=== PATIENT | female | born 2000 | race Caucasian/White ===

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

== ENCOUNTER 2021-01-06 21:31 | Outpatient (CLI) | payer MEDICAID ==
[~2021-01-06] VITALS: Ht 162.6 cm; Wt 68.2 kg
[~2021-01-06 21:31] MED LIST changes: +SPRINTEC 35 MCG1 TAB PO; +ZOFRAN ODT4 MG PO
[2021-01-06] MEDS ORDERED: PRENATAL TABLET PO (21:55)
[2021-01-06] MEDS ORDERED: LEXAPRO 10MG10 MG PO (21:56)
[2021-01-06 22:06] VITALS: BP 131/76; PULSE 100; TEMP 98.5
[2021-01-06 22:12] LABS: COLLECTION METHOD CLEAN CATCH
[2021-01-06 22:17] LABS: MUCOUS Present /lpf; PH 7 (5-8); SQUAMOUS EPITHELIAL None Seen /hpf; URINE APPEARANCE Clear; URINE BACTERIA None Seen /hpf; URINE BILIRUBIN Negative (NEGATIVE); URINE BLOOD Negative (NEGATIVE); URINE COLOR Yellow; URINE GLUCOSE Negative (NEGATIVE); URINE KETONE 2+ (NEGATIVE); URINE LEUKOCYTE ESTERASE Negative (NEGATIVE); URINE NITRATE Negative (NEGATIVE); URINE PROTEIN(semi-quant) Negative (NEGATIVE); URINE RBC 0-2 /hpf; URINE UROBILINOGEN Negative (NEGATIVE); URINE WBC 0-2 /hpf
== END 2021-01-06 22:38 | disposition home or self-care (01) ==
LOC: LDRO 21:31
PROVIDERS: Obstetrics & Gynecology
DX: O26.892 Other specified pregnancy related conditions, second trimester (principal); M54.9 Dorsalgia, unspecified; R10.2 Pelvic and perineal pain; R30.9 Painful micturition, unspecified; Z3A.20 20 weeks gestation of pregnancy

== ENCOUNTER 2021-04-20 11:22 | Outpatient (CLI) | payer MEDICAID ==
[2021-04-20] VITALS (9 sets, daily range): BP systolic 109–118; BP diastolic 63–73; PULSE 105–133; TEMP 99.2
[~2021-04-20] VITALS: Ht 162.6 cm; Wt 82.3 kg
[~2021-04-20 11:22] MED LIST changes: +LEXAPRO 10MG10 MG PO; +PRENATAL TABLET PO
--- NOTE | 2021-04-20 11:25 | NUR ---
1125-, 35.1, arrives on unit w/ SO to LDR5. Oriented to room and instructed to change into gown. Patient denies LOF, VB, or decreased movement. Patient reports that she is having some lower back pain and abdominal pain. Denies regular ctx at this time. EFM/TOCO explained and applied. Assessments completed. Plan of care discussed, patient verbalizes understanding. 1200-SVE CL/TH/HI. 1230-Covid swab completed and sent to lab. 1240-IV started. Blood obtained and sent to lab. 500 ml IV bolus started. Plan of care discussed, patient verbalizes understanding. Call light within reach.
[2021-04-20 12:49] LABS: BASO % 0.3 % (0.0-2.0); GRAN # 8.1 K/mm3 (1.4-6.5); GRAN % 88.4 % (42.2-75.2); HEMATOCRIT 39.8 % (37.0-47.0); HEMOGLOBIN 13.7 g/dl (12.5-16.0); LYMPH # 0.5 K/mm3 (1.2-3.4); LYMPH % 5.9 % (20.0-51.0); MEAN CELL VOLUME 89 fl (80.0-100.0); MEAN CORPUSCULAR HEMOGLOBIN 31 pg (27.0-31.0); MEAN CORPUSCULAR HGB CONC 34 g/dl (33.0-37.0); MEAN PLATELET VOLUME 8.9 fl (7.4-10.4); MONO # 0.4 K/mm3 (0.1-0.6); MONO % 4.6 % (1.7-9.3); PLATELET COUNT 194 K/mm3 (130-400); RED BLOOD COUNT 4.45 M/mm3 (4.10-5.30); REDCELL DISTRIBUTION WIDTH-CV 12.4 % (11.5-14.5)
[2021-04-20 13:04] LABS: BILIRUBIN,TOTAL 0.7 mg/dL (0.2-1.2); CREATININE, serum 0.51 mg/dL (0.57-1.11); POTASSIUM 3.5 mmol/L (3.5-4.5); TOTAL PROTEIN 6.8 gm/dL (6.2-8.1)
--- NOTE | 2021-04-20 15:50 | NUR ---
1550-Discharge instructioned reviewed with patient. Patient verbalizes understanding. 1600-Patient ambulatory off unit with SO.
== END 2021-04-20 16:00 | disposition home or self-care (01) ==
LOC: LDRO 11:22
PROVIDERS: Obstetrics & Gynecology
DX: O26.893 Other specified pregnancy related conditions, third trimester (principal); R25.2 Cramp and spasm; R11.2 Nausea with vomiting, unspecified; R19.7 Diarrhea, unspecified; M54.50 Low back pain, unspecified; Z3A.35 35 weeks gestation of pregnancy
CPT/HCPCS: J7120

== ENCOUNTER 2021-05-12 07:48 | Inpatient (IN) | payer MEDICAID ==
[~2021-05-12] VITALS: Ht 162.6 cm; Wt 84.1 kg
[2021-05-12] VITALS (30 sets, daily range): BP systolic 95–124; BP diastolic 52–83; PULSE 85–127; TEMP 97.4–98.5
--- NOTE | 2021-05-12 07:50 | NUR ---
Pt ambulatory onto unit with spouse. Pt changed into clean gown. FHR monitor/TOCO applied. Pt complaining of contraction pain. Pt denies any gushing of fluid, heavy vaginal bleeding, or decreased movement. SVE by this RN and Guilherme Hassan 5-/-2. Plan of care is discussed. Pt verbalizes understanding.
[2021-05-12 08:59] LABS: BASO % 0.4 % (0.0-2.0); EOS # 0.1 K/mm3 (0.0-0.7); EOS % 0.7 % (0.0-4.0); GRAN # 8.1 K/mm3 (1.4-6.5); GRAN % 72.7 % (42.2-75.2); LYMPH # 1.8 K/mm3 (1.2-3.4); LYMPH % 16.6 % (20.0-51.0); MEAN CELL VOLUME 88 fl (80.0-100.0); MEAN CORPUSCULAR HEMOGLOBIN 31 pg (27-31); MEAN CORPUSCULAR HGB CONC 35 g/dl (33.0-37.0); MEAN PLATELET VOLUME 8.7 fl (7.4-10.4); MONO % 9.1 % (1.7-9.3); PLATELET COUNT 198 K/mm3 (130-400); RED BLOOD COUNT 4.23 M/mm3 (4.10-5.30); REDCELL DISTRIBUTION WIDTH-CV 12.4 % (11.5-14.5)
--- NOTE | 2021-05-12 09:15 | NUR ---
FHR monitor tracing maternal heart rate. this RN at bedside. pt sitting up for epidural.
--- NOTE | 2021-05-12 14:00 | NUR ---
1300 Dr. Mcneal in patients room reviewing FHR strip. SVE by Dr Mcneal /+2. This RN teaches patient how to push and prepares for delivery 1305 Pt begins pushing with contractions. [id number] Mcneal and this RN at bedside. Pt tolerating well. 1352 Spontaneous vaginal delivery of viable male infant. is bulb suctioned and stimulated placed on mother's chest. Cord is clamped by Dr Mcneal and cut by father of baby. Ronny santamaria takes over care of infant. 1355 Spontaneous delivery of placenta. Pitocin bolus started per protocol. 1st degree perineal laceration noted. Dr Mcneal repairs laceration. Epidural pump is turned off and anesthesia notified. Fundal massage is performed. Pt firm/midline. Small amt of bleeding noted. No clots. Plan of care and safety precautions discussed with patient. Pt verbalizes understanding.
--- NOTE | 2021-05-12 20:00 | NUR ---
1999 PAD CHANGED WITH 3/4 PAD SATURATED IN TWO HOURS. FF. DR JIMENEZ AWARE AND NEW ORDER RECIEVED
--- NOTE | 2021-05-12 21:00 | NUR ---
2100 UP TO BR AND VOIDED 300CC WITH SM TO MOD VAG BLEEDING NOTED ON PAD. NO EXCESS VAG BLEEDING NOTED WHEN UP. PAD CHANGED. RETURNED TO BED. NO C/O DIZZINESS WHEN UP.
[2021-05-13 02:15] VITALS: BP 92/46; PULSE 80; TEMP 97.8
[2021-05-13 07:02] LABS: HEMATOCRIT 27.1 % (37.0-47.0); HEMOGLOBIN 9.4 g/dl (12.5-16.0)
[2021-05-13 09:00] VITALS: BP 90/41; PULSE 84; TEMP 97.9
--- NOTE | 2021-05-13 10:43 | NUR ---
Initial visit; Parents thanked Front Desk Manager for offering congratulations and God's blessings for the of their son. Front Desk Manager thanked family for choosing [facility].
[2021-05-13 16:30] VITALS: BP 98/46; PULSE 87; TEMP 98.1
[2021-05-13] MEDS ORDERED: MOTRIN 800800 MG/TAB PO (17:08)
[2021-05-13 22:00] VITALS: BP 98/58; PULSE 95; TEMP 97.8
[2021-05-14 08:00] VITALS: BP 104/55; PULSE 106; TEMP 97.8
--- NOTE | 2021-05-14 11:45 | NUR ---
DISCHARGE TEACHING COMPLETED. EDUCATED ON PRESCRIPTIONS AND FOLLOW UP APPOINTMENTS. QUESTIONS INVITED AND ANSWERED.
== END 2021-05-14 12:30 | disposition home or self-care (01) | DRG 806 ==
LOC: LDRO 07:48 → LDR 08:28 → OB 08:28
PROVIDERS: Obstetrics & Gynecology; ADMIT Obstetrics & Gynecology
PROC: 10E0XZZ Delivery of Products of Conception, External Approach (ICD-10-PCS; principal; 2021-05-12)
PROC: 0HQ9XZZ Repair Perineum Skin, External Approach (ICD-10-PCS; 2021-05-12)
DX: O99.344 Other mental disorders complicating childbirth (principal); O72.2 Delayed and secondary postpartum hemorrhage; Z37.0 Single live birth; F41.3 Other mixed anxiety disorders; F32.A Depression, unspecified; O70.0 First degree perineal laceration during delivery; Z3A.38 38 weeks gestation of pregnancy
CPT/HCPCS: J2210; J2590; J2795; J7120

== ENCOUNTER 2023-06-15 11:22 | Emergency (ER) | payer BC ==
[~2023-06-15] VITALS: Ht 162.6 cm; Wt 63.2 kg
[~2023-06-15 11:22] MED LIST changes: +MOTRIN 800800 MG/TAB PO
[2023-06-15 11:30] VITALS: BP 108/73; PULSE 84; TEMP 98
[2023-06-15] MEDS ORDERED: Ketorolac 30 MG/ML VIAL IV ONE (12:30)
[2023-06-15 12:54] LABS: COLLECTION METHOD CLEAN CATCH
[2023-06-15 13:09] LABS: BASO % 0.2 % (0.0-2.0); EOS # 0.1 K/mm3 (0.0-0.7); EOS % 1.5 % (0.0-4.0); GRAN # 2.7 K/mm3 (1.4-6.5); GRAN % 58.3 % (42.2-75.2); HEMOGLOBIN 14.9 g/dl (12.5-16.0); LYMPH # 1.3 K/mm3 (1.2-3.4); LYMPH % 27.6 % (20.0-51.0); MEAN CELL VOLUME 90 fl (80.0-100.0); MEAN CORPUSCULAR HEMOGLOBIN 32 pg (27-31); MEAN CORPUSCULAR HGB CONC 36 g/dl (33.0-37.0); MONO # 0.6 K/mm3 (0.1-0.6); MONO % 12.2 % (1.7-9.3); PLATELET COUNT 212 K/mm3 (130-400); RED BLOOD COUNT 4.65 M/mm3 (4.10-5.30); REDCELL DISTRIBUTION WIDTH-CV 11.9 % (11.5-14.5)
[2023-06-15 13:18] LABS: ALBUMIN 4.3 gm/dL (3.5-5.0); BILIRUBIN,TOTAL 0.6 mg/dL (0.2-1.2); CALCIUM 9.2 mg/dL (8.4-10.2); CREATININE, serum 0.69 mg/dL (0.57-1.11); TOTAL PROTEIN 7.6 gm/dL (6.2-8.1)
[2023-06-15 13:46] LABS: URINE APPEARANCE Hazy (CLEAR/HAZY); URINE COLOR Yellow (YELLOW)
[2023-06-15 13:47] LABS: URINE BLOOD TRACE-INTACT (NEGATIVE); URINE GLUCOSE Negative (NEGATIVE); URINE KETONE Negative (NEGATIVE); URINE NITRATE Negative (NEGATIVE); URINE PROTEIN(semi-quant) Negative (NEGATIVE)
[2023-06-15 13:48] LABS: MUCOUS Present (NOT PRESENT); SQUAMOUS EPITHELIAL 0-2 /hpf (0-10); URINE BACTERIA Occasional /hpf (NONE SEEN); URINE RBC 0-2 /hpf (0-2)
[2023-06-15] MEDS ORDERED: Iohexol 300 - 100 ML VIAL IV ONE (14:21)
== END 2023-06-15 14:45 | disposition left against medical advice (07) ==
LOC: COL.ER 11:22
PROVIDERS: Physician Assistant
DX: R10.30 Lower abdominal pain, unspecified (principal)
CPT/HCPCS: J1885; Q9967